=== PATIENT | female | born 1950 | race African-American/Black ===

== ENCOUNTER 2021-12-21 16:59 | Emergency (ER) | payer MEDICARE, SELFPAY ==
--- NOTE | ~2021-12-21 | XR_ITS ---
EXAMINATION: XR ELBOW, LEFT CLINICAL INFORMATION: Fall, pain. COMPARISON: None TECHNIQUE: AP, lateral, and oblique views of the left elbow. FINDINGS: No acute fracture or malalignment. Soft tissue swelling, nonspecific, somewhat more apparent in the olecranon fossa. Moderate degenerative osteoarthritis. Enthesophytes in the olecranon process and lateral humeral epicondyle. No joint effusion. No unexpected radiopaque foreign bodies. XR/XR elbow LT min 3V IMPRESSION: 1. No acute fracture or subluxation. 2. Nonspecific soft tissue edema, correlate with physical examination. This is somewhat more robust adjacent to the olecranon process. 3. Moderate osteoarthritis with enthesophytes in the olecranon process and lateral humeral epicondyle, correlate clinically for signs of epicondylitis.
--- NOTE | ~2021-12-21 | XR_ITS ---
EXAMINATION: XR HIP, LEFT CLINICAL INFORMATION: Fall with pain COMPARISON: None TECHNIQUE: AP pelvis and 2 views left hip. FINDINGS: No fracture or dislocation identified. Mild bilateral hip joint space narrowing with subchondral sclerosis and osteophyte formation. Pubic symphysis and sacroiliac joints are congruent and intact. Facet arthrosis in the lower lumbar spine noted. Small subcentimeter sclerotic probable bone island projects in the left ischium. XR/XR hip LT w PEL1V IMPRESSION: 1. No acute fracture or dislocation. 2. Mild to moderate bilateral hip joint osteoarthritis.
--- NOTE | ~2021-12-21 | CT_ITS ---
EXAMINATION: CT HEAD WITHOUT CONTRAST CLINICAL INFORMATION: Fall COMPARISON: None TECHNIQUE: Imaging was performed from the skull base to vertex without intravenous administration of contrast. This CT examination was performed using dose optimization techniques as appropriate, variously including the following: *Automated exposure control *Adjustment of mA and/or kV according to patient size (this includes techniques or standardized protocols for targeted exams where dose is matched to indication/reason for exam; i.e. extremities or head) *Use of iterative reconstruction technique Total exam dose length product: 631 mGy-cm FINDINGS: No intra or extra-axial fluid collection, hemorrhage, or mass. No ventriculomegaly. No midline shift or herniation. Basal cisterns are patent. Allen-white matter differentiation is maintained. No territorial encephalomalacia. No significant volume loss. Patchy periventricular and deep white matter hypoattenuation is consistent with mild small vessel ischemic changes. Bilateral basal ganglia calcifications noted. Cerebellar atrophy with prominent cerebellar folia. No calvarial fracture or soft tissue abnormality. The mastoid air cells and visualized portions of the paranasal sinuses are well aerated. CT/CT head/brain wo con IMPRESSION: 1. No intracranial hemorrhage or calvarial fracture. 2. Cerebellar atrophy. 3. Mild chronic small vessel ischemic white matter change.
[2021-12-21 17:09] VITALS: PULSE 95; O2SAT 97
[2021-12-21 17:10] VITALS: BP 147/65; PULSE 91; RESP 17; TEMP 36.6; O2SAT 99; BMI 27.3
--- NOTE | 2021-12-21 17:13 | ED_ITS ---
HPI - Fall General Chief Complaint: Fall Stated Complaint: FALL W/HIP AND L ELBOW PAIN Time Seen by Provider: 12/21/21 17:13 Source: patient Mode of arrival: ambulatory Limitations: no limitations History of Present Illness complaint: fall Onset (ago): minute(s) (just prior to arrival ) Fall from: standing Place fall occurred: other ([place] ) Loss of consciousness: none Prolonged down time: no Symptoms prior to fall: none Context: other (states she couldn't keep up with her friend who was walking too fast and she fell hitting her head and L elbow and left hip. no LOC) Location of injury: head and pelvis Location of injury - extremities: left: elbow Severity: moderate Quality: dull and aching Associated symptoms (after fall): denies Related Data Allergies Allergy/AdvReac Type Severity Reaction Status Date / Time No Known Allergies Allergy Verified 12/21/21 17:12 Review of Systems Review of Systems: Constitutional : No Fever, No Chills ENT/Mouth : No Ear Pain, No Hoarseness, No sore throat Eyes: No Eye Pain, No Swelling, No Redness, No Foreign Body Cardiovascular : No Chest Pain, No SOB Respiratory : No Cough, No Dyspnea Gastrointestinal : No Nausea, No Vomiting, No Diarrhea, No abdominal Pain Genitourinary : No Dysuria, No Hematuria Musculoskeletal : positive joint pain, No Myalgias, No Joint Swelling Skin : No Skin lacerations, No rash Neuro : No Weakness, No Numbness, No Loss of Consciousness, No Dizziness, pos Headache Psych : No Anxiety/Panic, No Depression Heme/Lymph: no easy bruising, no Lymphadenopathy Endocrine : No Polyuria, No Polydipsia All other systems reviewed and are negative [facility] Past Medical History Attestation statement: The following information was validated with the patient. Medical History (Updated 12/21/21 @ 18:05 by Marzena Garcia DO) Afib HTN (hypertension) Seizure Social History Social History (Updated 12/21/21 @ 17:14 by Marzena Garcia DO) Alcohol intake: never Patient Tobacco Use Status: Never used Tobacco Use of substances other than those prescribed or required for medical reasons: No Advance Directives: No Advance Directives Information Provided: Yes Physical Exam Vital Signs: Vital Signs: Last Vital Signs Temp 98 F 12/21/21 17:10 Pulse 85 12/21/21 17:40 Resp 17 12/21/21 17:10 BP 149/60 H 12/21/21 17:40 Pulse Ox 96 12/21/21 17:40 O2 Del Method 12/21/21 17:40 BMI result Body Mass Index 27.3 Appearance: Alert. Oriented X3. No acute distress. stood up and pivoted with EMS Eyes: Pupils equal, round and reactive to light. ENT: Pharynx normal. Atraumatic Neck: Normal inspection. Neck supple. No midline ttp CVS: Normal heart rate and rhythm. Pulses normal. Respiratory: No respiratory distress. Breath sounds normal. Abdomen: Soft and nontender. Skin: Skin warm and dry. Normal skin color. Normal skin turgor. Extremities: No lower extremity edema. L hip ttp along proximal area - distal NV intact, L elbow ttp along olecranon distal NV intact Neuro: Oriented X 3. No motor deficit. No sensory deficit. Course Course Course Narrative: negative xrays and CT head with EMS able to ambulate without pain but has no safe dc home and no ride will attempt to find safe ride home MDM - Fall MDM Narrative Medical decision making narrative: 71 yo female with hx of seizure and HTN here with mechanical fall with c/o pain to head after striking head no LOC but is on DOAC, L elbow and hip pain. At this time will obtain xrays of L elbow/hip and CT head given age and headaches. PO tylenol for pain. Dispo per results and findings. Discharge Plan Discharge Clinical Impression: Contusion of hip Qualifiers: Encounter type: initial encounter Laterality: left Qualified Code(s): S70.02XA - Contusion of left hip, initial encounter Contusion of elbow Qualifiers: Encounter type: initial encounter Laterality: left Qualified Code(s): S50.02XA - Contusion of left elbow, initial encounter Head injury Qualifiers: Encounter type: initial encounter Qualified Code(s): S09.90XA - Unspecified injury of head, initial encounter Patient Disposition: Home, Self-Care Instructions: Head Injury (ED), Contusion in Adults (ED) Additional Instructions: return to ED for any worsening symptoms or concerns CT scan of head no acute trauma xrays of left elbow and left hip no broken bones but you do have arthritis
[2021-12-21 17:40] VITALS: BP 149/60; PULSE 85; O2SAT 96
[2021-12-21] MEDS: Acetaminophen 325 MG TABLET 650 MG PO (17:45)
--- NOTE | 2021-12-21 18:32 | PC.NURSE ---
called the pt's sister samira to see if she could come pick her up but no answer, left a message to call back
--- NOTE | 2021-12-21 18:40 | PC.NURSE ---
called the pt's friend luis a to see if she would pick her up but the pt's friend does not drive, luis a's number [phone]
--- NOTE | 2021-12-21 23:26 | PC.NURSE ---
pt ambulated to the mwr with steady gait, pt refused to come back to sit in 6h
--- NOTE | 2021-12-21 23:55 | PC.NURSE ---
I assumed nursing care of this patient at 1900. At that time we were instructed that the pt, who was sitting in a hallway recliner, was waiting for an cabulance transport home which would occur at 2300/ Due to very high volume and high acuity in the depaartment, the pt left with the transport home but I did not witness this.
== END 2021-12-21 23:57 | disposition home or self-care (01) ==
PROVIDERS: Emergency Provider Emergency Medicine
DX: S09.90XA Unspecified injury of head, initial encounter (principal); S70.02XA Contusion of left hip, initial encounter; S50.02XA Contusion of left elbow, initial encounter; W01.0XXA Fall on same level from slipping, tripping and stumbling without subsequent striking against object, initial encounter; I48.91 Unspecified atrial fibrillation; I10 Essential (primary) hypertension; Y93.01 Activity, walking, marching and hiking; Y92.59 Other trade areas as the place of occurrence of the external cause; Y99.9 Unspecified external cause status
CPT/HCPCS: 70450; 73080; 73502; 99284